=== PATIENT | male | born 1985 | race Caucasian/White ===

== ENCOUNTER 2025-06-27 08:19 | Outpatient (CLI) | payer BC | END 2025-06-27 08:20 | disposition home or self-care (01) | LOC: CSHSLEEP 08:19 | PROVIDERS: ATTEND Family Medicine | DX: G47.33 Obstructive sleep apnea (adult) (pediatric) (principal); R53.83 Other fatigue; E66.9 Obesity, unspecified; Z68.43 Body mass index [BMI] 50.0-59.9, adult; R06.83 Snoring; R35.1 Nocturia | CPT/HCPCS: 95800 ==